=== PATIENT | female | born 1995 | race Hispanic/Latino ===

== ENCOUNTER 2017-11-09 09:48 | Day surgery (SDC) | payer OTHER ==
[2017-11-09 10:24] VITALS: BP 100/70; TEMP 98.3
[2017-11-09 10:25] VITALS: BMI 24.0
== END 2017-11-09 11:15 | disposition home or self-care (01) ==
LOC: L&D/OP 09:48
PROVIDERS: ATTEND Obstetrics & Gynecology
DX: O26.853 Spotting complicating pregnancy, third trimester (principal); O47.1 False labor at or after 37 completed weeks of gestation; Z3A.37 37 weeks gestation of pregnancy; Z79.899 Other long term (current) drug therapy
CPT/HCPCS: 99282

== ENCOUNTER 2017-11-10 04:59 | Inpatient (IN) | payer MEDICAID, OTHER, SELFPAY ==
[2017-11-10] MEDS: Lactated Ringer's 1,000 ML IV SCH ×3 (05:15→20:41)
[2017-11-10 05:22] VITALS: BMI 22.0
[2017-11-10] MEDS ORDERED: Ondansetron HCl/PF 4 MG/2 ML Vial IVP PRN ×4 (05:44→10:05)
[2017-11-10] MEDS ORDERED: Acetaminophen 500 MG TAB PO PRN (05:44)
[2017-11-10] MEDS ORDERED: Promethazine HCl 25 MG/ML VIAL IM PRN ×3 (05:44→10:05)
[2017-11-10] MEDS ORDERED: Ibuprofen 800 MG TAB PO PRN (05:51)
[2017-11-10] MEDS ORDERED: LR / Pitocin 40 units/1000 ml 1,000 ML IV PRN (05:51)
[2017-11-10] MEDS ORDERED: Lidocaine 1% (PF) 30 ML VIAL SC PRN (05:51)
[2017-11-10 06:05] LABS: Hematocrit 32.9 % (36.0-47.0); Red Blood Cell (RBC) Count 4.31 mill/uL (4.20-5.40)
[2017-11-10] MEDS ORDERED: Fentanyl 4 mcg/Marc 0.1% Cadd 100 ML ONE (06:20)
[2017-11-10 06:47] LABS: #Eosinphils 0.1 thou/uL (0.0-0.7); #Lymphocytes 1.7 thou/uL (1.20-3.40); #Monocytes 0.8 thou/uL (0.11-0.59); #Neutrophils 8.5 thou/uL (1.40-6.50); %Basophils 0.1 % (0.0-1.0); %Eosinophils 0.5 % (0.0-10.0); %Lymphocytes 15.4 % (21.0-51.0); %Monocytes 6.9 % (0.0-10.0)
[2017-11-10] MEDS ORDERED: Lactated Ringer's 500 ML IV PRN (07:10)
[2017-11-10] MEDS ORDERED: diphenhydrAMINE 50 MG/ML VIAL IVP PRN ×2 (07:10→10:05)
[2017-11-10] MEDS ORDERED: ePHEDrine/0.9% NaCl/PF SYRINGE 50 mg/10 ml SLOW IVP PRN (07:10)
[2017-11-10] MEDS ORDERED: Acetaminophen 325 MG TAB PO PRN (07:10)
[2017-11-10] MEDS ORDERED: Eucerin (Mineral Oil/Petrolatum,White) 30 gm Jar TOP PRN ×2 (07:10→10:05)
[2017-11-10] MEDS ORDERED: Naloxone HCl 0.4 mg/ml Vial IVP PRN ×4 (07:10→10:05)
[2017-11-10] MEDS ORDERED: Fentanyl 4mcg/Marcaine 0.1% Cassette 100 ML EPIDURAL SCH (07:15)
[2017-11-10] MEDS ORDERED: Communication Order-Pharmacy FS SCH ×2 (07:15→10:15)
[2017-11-10] MEDS ORDERED: CEFAZOLIN/Water 2 GM/20 ML SYRINGE ONE (08:29)
[2017-11-10] MEDS ORDERED: Bicitra 30 ML UDCUP ONE ×2 (08:29)
[2017-11-10] MEDS ORDERED: Morphine PF 1 MG/ML SYR ONE (08:33)
[2017-11-10] MEDS ORDERED: Lidocaine 2% PF 5 ML VIAL ONE (08:34)
[2017-11-10] MEDS ORDERED: Ketorolac Tromethamine 30 MG/ML VIAL ONE ×2 (08:34→15:18)
[2017-11-10] MEDS ORDERED: Oxytocin 10 UNITS/ML VIAL ONE ×2 (08:34→09:20)
--- NOTE | 2017-11-10 08:42 | PDOC.EVN ---
Event Note - Event Note Event Note: CS PREOP NOTE: @0820 I evaluated the patient's labor process. She was 6cm at 0730 (I assumed call at 0800). As I reviewed the tracing, recurrent lates with reduced FHR variability noted for last 20-30 minutes. Repeat exam by resident 8cm. No evidence tachysystole. Vitals ok. I have discussed the findings with the patient , resident, anesthesia and the patient's bedside RN. Due to persistent class III tracing without imminent delivery, we will proceed with primary CS. Patient was not lying supine during the lates, and no evidence overt severe hypotension noted. Epidural in use. Prepping for operative delivery now.
[2017-11-10] MEDS ORDERED: CEFAZOLIN/Water 2 GM/20 ML SYRINGE SLOW IVP SCH (09:00)
[2017-11-10] MEDS ORDERED: Azithromycin 500 MG in Sodium Chloride 0.9% 250 ML 250 ML IVPB SCH (09:00)
[2017-11-10] MEDS ORDERED: Bicitra 30 ML UDCUP PO SCH (09:00)
[2017-11-10] MEDS ORDERED: ePHEDrine/0.9% NaCl/PF SYRINGE 50 mg/10 ml ONE ×2 (09:12→15:18)
[2017-11-10] MEDS ORDERED: Ondansetron HCl/PF 4 MG/2 ML Vial ONE ×2 (09:19→15:18)
[2017-11-10 09:22] LABS: CO2 Tension (PaCO2) 74.9 mmHg (44.0-56.0)
[2017-11-10] MEDS ORDERED: Promethazine HCl 25 MG SUPP PR PRN (10:05)
[2017-11-10] MEDS ORDERED: Naloxone HCl 0.4 mg/ml Vial IV PRN (10:05)
[2017-11-10] MEDS ORDERED: Meperidine HCl/PF 25 MG/ML VIAL SLOW IVP PRN (10:05)
[2017-11-10] MEDS ORDERED: HYDROmorphone 2 MG/ML VIAL SLOW IVP PRN (10:05)
[2017-11-10] MEDS ORDERED: Ketorolac Tromethamine 30 MG/ML VIAL IVP SCH (10:15)
--- NOTE | 2017-11-10 10:19 | PDOC.OP ---
Operative Note - Operative Note Operative Note: FACULTY OP NOTE: (also imputted into baby chart). Preop: Patient with persistent Class III tracing at 8cm dilation. Procedure was primary LTCS under pfannesntiel (2 layer hysterotomy closure with #1 Vicryl). Surg: Mayra (FP resident), Haroon (Faculty). Epidural anesthesia. EBL 1000ml. IVF: 1500ml LR; UOP: 400ml blood tinged. Findings: [place] female. No Nuchal cord. 3VC, placenta sent to pathology for decels. Apgars 8, 9. Delivery at 0907. About 30 second delay pre-hysterotomy occurred as we saw the bladder dome full, our lockstitch front maker checked the palmer under the drapes pre-hysterotomy. After delivery- bladder drained. head was deeply impacted and required my assistance for hysterotomy delivery after attempt by Mayra. No vaginal hand was needed. No uterine extension. head was impacting palmer drainage pre- delivery. No bladder injury noted. fascia closed with O-PDS with one suture, running non-locking. SKIN stapled. Cord PH= 7.15, BE= -8 No complications. Counts correct. To RR.
[2017-11-10] MEDS ORDERED: Meperidine HCl/PF 25 MG/ML VIAL ONE (11:31)
[2017-11-10] MEDS ORDERED: Lanolin Ointment 7 GM TUBE TOP PRN (12:11)
[2017-11-10] MEDS ORDERED: Bupivacaine/Epinephrine 0.25% 30 ML VIAL ONE (14:33)
[2017-11-10] MEDS: Ketorolac Tromethamine 30 MG/ML VIAL IVP PRN ×2 (16:08→22:06)
[2017-11-11] MEDS: Ketorolac Tromethamine 30 MG/ML VIAL IVP PRN (04:22)
[2017-11-11 05:44] LABS: Hematocrit 19.4 % (36.0-47.0); Mean Platelet Volume 9.7 fL (7.4-10.4); Red Blood Cell (RBC) Count 2.51 mill/uL (4.20-5.40); White Blood Cell (WBC) Count 14.6 thou/uL (4.8-10.8)
[2017-11-11] MEDS ORDERED: Sodium Chloride 0.9% 10 ML ONE (05:46)
--- NOTE | 2017-11-11 07:21 | PDOC.PP ---
Post Progress Note Post Day #: 1 Subjective: No SOB, dizziness PO intake tolerated: yes Flatus: yes Vital Signs (12 hours) Temp Pulse Resp BP 11/11/17 06:24 18 11/11/17 04:00 98.5 F 84 20 97/57 L 11/11/17 02:00 18 11/11/17 00:00 98.1 F 73 20 99/54 L 11/10/17 22:00 20 11/10/17 20:00 98.1 F 76 18 98/56 L Weight Weight 113 lb - Physical Examination General: NAD Respiratory: non-labored breathing Abdominal: + bowel sounds, appropriately TTP Extremities: negative homans (B) Neurological: no gross focal deficits Psychiatric: A&Ox3 Result Diagrams: 11/11/17 04:56 Additional Labs: Post Labs Blood Type O POSITIVE 11/10/17 05:41 Hep Bs Antigen Non-Reactive S/CO (NonReactive) 11/10/17 05:41 (1) delivery delivered Code(s): O82 - ENCOUNTER FOR DELIVERY WITHOUT INDICATION Status: Acute (2) Anemia, Code(s): O90.81 - ANEMIA OF THE PUERPERIUM Status: Acute - Assessment/Plan ASX anemia...HCT 19. No tachycardia. Repeat H&H today at 1200noon Continue postop care for now IVFs...ok to heplock As nontachycardic, will not transfuse now but will recheck HCT.
[2017-11-11] MEDS ORDERED: Acetaminophen/Codeine 30-300mg Tablet PO PRN (07:22)
[2017-11-11] MEDS ORDERED: Iron Sucrose Complex 400 MG in Sodium Chloride 0.9% 250 ML 250 ML IVPB SCH (07:30)
--- NOTE | 2017-11-11 07:30 | PDOC.EVN ---
Event Note - Event Note Event Note: VENOFER NOTE: As patient is non-tachycardia at this time, but with anemia postop (HCT 19), I have ordered Venofer 400mg IV today.
[2017-11-11] MEDS: Acetaminophen/Codeine 30-300mg Tablet PO PRN ×4 (08:18→23:28)
[2017-11-11] MEDS: Prenatal Vitamin 1 TAB PO SCH (08:25)
[2017-11-11] MEDS ORDERED: Adacel (T-DAP) 0.5 ML VIAL IM ONE (09:00)
[2017-11-11] MEDS ORDERED: FLU VACC QS2017-18 36 mo. & older 0.5 ML SYRINGE IM ONE (09:00)
[2017-11-11] MEDS: Sodium Ferric Gluconate 250 MG in Sodium Chloride 0.9% 100 ML IVPB SCH ×2 (09:30→21:14)
--- NOTE | 2017-11-11 10:27 | PDOC.PP ---
Post Progress Note Post Day #: 1 Subjective: Patient had a good night. She does state she is sore and tired. She denies n/v/ d. She denies dizziness, chest pain, or sob. She has no other complaints at this time. PO intake tolerated: yes Flatus: yes Ambulation: yes Vital Signs (12 hours) Temp Pulse Resp BP Pulse Ox 11/11/17 08:05 98.7 F 82 18 92/50 L 97 11/11/17 06:24 18 11/11/17 04:00 98.5 F 84 20 97/57 L 11/11/17 02:00 18 11/11/17 00:00 98.1 F 73 20 99/54 L Weight Weight 51.256 kg - Physical Examination General: NAD Cardiovascular: RRR Deviation from normal: systolic murmur present Respiratory: clear to auscultation bilaterally, non-labored breathing Abdominal: + bowel sounds, lochia, no distention, appropriately TTP Fundus firm & at: below umbilicus, exam limited to pain around incision site Extremities: negative homans (B) Skin: CS incision dry & intact, no rash Neurological: no gross focal deficits Psychiatric: A&Ox3 Result Diagrams: 11/11/17 04:56 Additional Labs: Post Labs Blood Type O POSITIVE 11/10/17 05:41 Hep Bs Antigen Non-Reactive S/CO (NonReactive) 11/10/17 05:41 (1) delivery delivered Code(s): O82 - ENCOUNTER FOR DELIVERY WITHOUT INDICATION Status: Acute Comment: for non reassuring Heart Tones EBL 1000 hgb 6.2 & hct 19 today Will give iron supplementation today Will recheck hgb and hct Continue routine post op care (2) Anemia, Code(s): O90.81 - ANEMIA OF THE PUERPERIUM Status: Acute Comment: Not currently symptomatic No tachycardia, no hypotension, no dizziness Repeat Hgb & Hct today Will not transfuse because asymptomatic Will give iron replacement. -Monitor for signs and symptoms of symptomatic anemia - Assessment/Plan Continue current plan of care.
[2017-11-11] MEDS ORDERED: Simethicone Chewable 80 MG TAB PO PRN (12:05)
[2017-11-11] MEDS: Ibuprofen 800 MG TAB PO PRN ×2 (14:40→21:14)
[2017-11-12] MEDS: Ibuprofen 800 MG TAB PO PRN ×2 (05:26→22:17)
--- NOTE | 2017-11-12 07:22 | PDOC.PP ---
Post Progress Note Post Day #: 2 Subjective: Patient had a good night. She said her bleeding and pain is improved. She said is going well. She specifically denies palpitations, racing heart beat, and dizziness. She denies chest pain, sob, or n/v/d. She has no other concerns this morning. PO intake tolerated: yes Flatus: yes Ambulation: yes Vital Signs (12 hours) Temp Pulse Resp BP BP Pulse Ox 11/12/17 05:40 98.1 F 64 16 85/52 L 98/61 11/12/17 00:00 98.0 F 77 20 92/50 L 11/11/17 23:25 98.0 F 76 18 11/11/17 20:00 98.0 F 76 18 96/55 L 97 Weight Weight 51.256 kg - Physical Examination General: NAD Cardiovascular: no m/r/g, RRR Respiratory: clear to auscultation bilaterally Abdominal: + bowel sounds, lochia, appropriately TTP Extremities: negative homans (B) Skin: CS incision dry & intact, no rash Neurological: no gross focal deficits Psychiatric: A&Ox3, normal affect Result Diagrams: 11/12/17 07:47 Additional Labs: Post Labs Blood Type O POSITIVE 11/10/17 05:41 Hep Bs Antigen Non-Reactive S/CO (NonReactive) 11/10/17 05:41 (1) delivery delivered Code(s): O82 - ENCOUNTER FOR DELIVERY WITHOUT INDICATION Status: Acute Comment: for non reassuring Heart Tones EBL 1000 S/p iron supplmentation Will recheck hgb and hct Continue routine post op care (2) Anemia, Code(s): O90.81 - ANEMIA OF THE PUERPERIUM Status: Acute Comment: Not currently symptomatic No tachycardia, no hypotension, no dizziness Repeat Hgb & Hct today Will check orthostatics Will give iron supplementation as outpatient -Monitor for signs and symptoms of symptomatic anemia <Warren Delaney - Last Filed: 11/12/17 08:20> Vital Signs (12 hours) Temp Pulse Resp BP BP 11/12/17 07:51 98.1 F 72 16 95/53 L 11/12/17 05:40 98.1 F 64 16 85/52 L 98/61 11/12/17 00:00 98.0 F 77 20 92/50 L 11/11/17 23:25 98.0 F 76 18 Weight Weight 113 lb Result Diagrams: 11/12/17 07:47 Additional Labs: Post Labs Blood Type O POSITIVE 11/10/17 05:41 Hep Bs Antigen Non-Reactive S/CO (NonReactive) 11/10/17 05:41 - Assessment/Plan Reviewed findings with resident - will proceed with 1 unit prbc transfusion and re assess patient. no evidence of continuing blood loss <Eugene Hayes - Last Filed: 11/12/17 09:24>
--- NOTE | 2017-11-12 08:03 | PDOC.EVN ---
Event Note - Event Note Event Note: Pt doing well, good pain control, voiding well, nl lochia. Pt has no dizziness with standing Vital Signs (12 hours) Temp Pulse Resp BP BP Pulse Ox 11/12/17 07:51 98.1 F 72 16 95/53 L 11/12/17 05:40 98.1 F 64 16 85/52 L 98/61 11/12/17 00:00 98.0 F 77 20 92/50 L 11/11/17 23:25 98.0 F 76 18 11/11/17 20:00 98.0 F 76 18 96/55 L 97 Weight Weight 113 lb Laboratory Results - last 24 hr 11/11/17 16:46 Hgb 6.3 L Hct 20.0 L Gen . [place], NAD Resp. unlabored Abd. soft, NT, ND, Inc C/D/I with pauly
[2017-11-12] MEDS: Prenatal Vitamin 1 TAB PO SCH (08:20)
[2017-11-12] MEDS: Acetaminophen/Codeine 30-300mg Tablet PO PRN ×2 (12:14→17:28)
[2017-11-13 01:46] VITALS: TEMP 98.2
[2017-11-13 01:49] VITALS: BP 101/58
[2017-11-13] MEDS: Ibuprofen 800 MG TAB PO PRN (06:10)
--- NOTE | 2017-11-13 07:12 | PDOC.PP ---
Post Progress Note Post Day #: 3 Subjective: Patient had a good night. She had no problems with the blood transfusion yesterday. She does state she feels less tired today. She is ready to go home. She specifically denies any lightheadedness, sob, or dizziness. She also denies feelings of her heart racing. She does have a little pain in her lower abdomen that is much improved from the days prior. She denies any other concerns this morning. PO intake tolerated: yes Flatus: yes Ambulation: yes Vital Signs (12 hours) Temp Pulse Resp BP 11/13/17 04:00 98.2 F 77 18 11/13/17 00:00 98.2 F 77 18 11/12/17 20:00 98.3 F 77 18 101/58 L Weight Weight 51.256 kg - Physical Examination General: NAD Cardiovascular: RRR Deviation from normal: systolic murmur present on exam. Respiratory: clear to auscultation bilaterally, non-labored breathing Abdominal: + bowel sounds, lochia, no distention, appropriately TTP Extremities: negative homans (B) Skin: CS incision dry & intact, no rash Neurological: no gross focal deficits Psychiatric: A&Ox3, normal affect Result Diagrams: 11/12/17 07:47 Additional Labs: Post Labs Blood Type O POSITIVE 11/10/17 05:41 Hep Bs Antigen Non-Reactive S/CO (NonReactive) 11/10/17 05:41 (1) delivery delivered Code(s): O82 - ENCOUNTER FOR DELIVERY WITHOUT INDICATION Status: Acute Comment: for non reassuring Heart Tones EBL 1000 S/p iron supplmentation Continue routine post op care Likely discharge home today with routine follow up. (2) Anemia, Code(s): O90.81 - ANEMIA OF THE PUERPERIUM Status: Acute Comment: Not currently symptomatic No tachycardia, no hypotension, no dizziness s/p 1u pRBC Will give iron supplementation as outpatient -Monitor for signs and symptoms of symptomatic anemia -Likely discharged home today on iron to follow up as outpatient. - Assessment/Plan Patient will likely be discharged today. <Warren Delaney - Last Filed: 11/13/17 07:30> Vital Signs (12 hours) Temp Pulse Resp 11/13/17 04:00 98.2 F 77 18 11/13/17 00:00 98.2 F 77 18 Weight Weight 113 lb Result Diagrams: 11/12/17 07:47 Additional Labs: Post Labs Blood Type O POSITIVE 11/10/17 05:41 Hep Bs Antigen Non-Reactive S/CO (NonReactive) 11/10/17 05:41 <Ariel Marshall - Last Filed: 11/13/17 08:13> Attending Addendum - Attending Addendum I personally evaluated the patient and discussed the management with Dr. Delaney I agree with the History, Examination, Assessment and Plan documented above with any addition or exceptions noted below. <Ariel Marshall - Last Filed: 11/13/17 08:13>
== END 2017-11-13 11:20 | disposition home or self-care (01) | DRG 766 ==
LOC: L&D/OP 04:59 → L&D 05:54 → 3SW 13:06
PROVIDERS: ADMIT Obstetrics & Gynecology; ATTEND Obstetrics & Gynecology
PROC: 10D00Z1 Extraction of Products of Conception, Low, Open Approach (ICD-10-PCS; principal; 2017-11-10)
PROC: 30233N1 Transfusion of Nonautologous Red Blood Cells into Peripheral Vein, Percutaneous Approach (ICD-10-PCS; 2017-11-12)
DX: O76 Abnormality in fetal heart rate and rhythm complicating labor and delivery (principal); D64.9 Anemia, unspecified; Z37.0 Single live birth; Z3A.39 39 weeks gestation of pregnancy; O90.81 Anemia of the puerperium
CPT/HCPCS: 36415; 36430; 51702; 82805; 85014; 85018; 85027; 85049; 86780; 86850; 86900; 86901; 87340; 88307; 99282; A4216; J0456; J1885; J2001; J2175; J2274; J2405; J2590; J2916; J7050; P9016